=== PATIENT | female | born 2000 | race Caucasian/White ===

== ENCOUNTER 2020-12-31 18:48 | Emergency (ER) | payer OTHER ==
[~2020-12-31] VITALS: Ht 160 cm; Wt 72.2 kg
[2020-12-31 19:00] VITALS: BP 127/58
--- NOTE | 2020-12-31 19:37 | PHYS DOC ---
General Adult EDM: Chief Complaint: HEAD INJURY/TRAUMA HPI: HPI: Patient is a 20-year-old female who presents with head injury. Patient states that a 2 x 4 was leaning up against the wall when it slipped and fell and hit her in the head. Patient has a hematoma to the right side of her forehead. Denies loss of consciousness, denies neck pain. Patient reports pain 2/10. GCS 15. Alert and oriented x4. Denies taking anything for pain prior to arrival. (SID LUONG APRN) Review of Systems: Review of Systems: Constitutional: Denies fever or chills Eyes: Denies change in visual acuity HENT: Denies nasal congestion or sore throat Respiratory: Denies cough or shortness of breath Cardiovascular: Denies chest pain or edema GI: Denies abdominal pain, nausea, vomiting right side bloody stools or diarrhea : Denies dysuria Musculoskeletal: Denies back pain or joint pain Integument: Hematoma, right side of forehead Neurologic: Reports headache, denies focal weakness or sensory changes Endocrine: Denies polyuria or polydipsia Lymphatic: Denies swollen glands Psychiatric: Denies depression or anxiety (SID LUONG APRN) Allergies: Allergies: Allergies Coded Allergies Type Severity Reaction Last Updated Verified No Known Drug Allergies 12/31/20 No (SID LUONG APRN) Physical Exam: PE: Constitutional: Well developed, well nourished, no acute distress, non-toxic ap pearance. [] HENT: Normocephalic, atraumatic, bilateral external ears normal, oropharynx moist, no oral exudates, nose normal. [] Eyes: PERRLA, EOMI, conjunctiva normal, no discharge. [] Neck: Normal range of motion, no tenderness, supple, no stridor. [] Cardiovascular:Heart rate regular rhythm, no murmur [] Lungs & Thorax: Bilateral breath sounds clear to auscultation [] Abdomen: Bowel sounds normal, soft, no tenderness, no masses, no pulsatile masses. [] Skin: Warm, dry, no erythema, no rash. [] Back: No tenderness, no CVA tenderness. [] Extremities: No tenderness, no cyanosis, no clubbing, ROM intact, no edema. [] Neurologic: Alert and oriented X 3, normal motor function, normal sensory function, no focal deficits noted. [] Psychologic: Affect normal, judgement normal, mood normal. [] (SID LUONG APRN) EKG: EKG: [] (SID LUONG APRN) Radiology/Procedures: Radiology/Procedures: [] (SID LUONG APRN) Radiology/Procedures: CT head without contrast: Reason for examination: Head trauma with headache and neck pain. Helical images were obtained through the brain. No contrast was administered. Ventricular systems are symmetric and not dilated. No midline shift is seen. There is no evidence of intracranial hemorrhage, infarct, mass or edema. No abnormalities of seen at the orbits. The visualized portions of the paranasal sinuses and mastoid air cells are clear. No acute skull abnormality is seen. There does appear to be a right frontal scalp hematoma. IMPRESSION: No acute intracranial abnormality evident. Small right frontal scalp hematoma. CT cervical spine without contrast: Helical images were obtained through the cervical spine from skull base through the thoracic apices with no contrast administered. Reconstruction was performed in sagittal and coronal planes. The C1 ring is intact. The odontoid process is intact and normally centered between the lateral masses of C1. The vertebral bodies of the cervical spine are normally aligned anteriorly and posteriorly with no fracture or subluxation seen. The posterior elements are intact. The intervertebral discs are maintained. Prevertebral soft tissues are normal. There is no spinal stenosis. Paraspinous muscles show no gross abnormalities. IMPRESSION: No acute abnormality evident in the cervical spine. (VIRGINIA GOLDSTEIN MD) Heart Score: C/O Chest Pain: No Risk Factors: Risk Factors: DM, Current or recent (<one month) smoker, HTN, HLP, family history of CAD, obesity. Risk Scores: Score 0 - 3: 2.5% MACE over next 6 weeks - Discharge Home Score 4 - 6: 20.3% MACE over next 6 weeks - Admit for Clinical Observation Score 7 - 10: 72.7% MACE over next 6 weeks - Early Invasive Strategies (SID LUONG APRN) C/O Chest Pain: N/A (VIRGINIA GOLDSTEIN MD) Course & Med Decision Making: Course & Med Decision Making Pertinent Labs and Imaging studies reviewed. (See chart for details) [] CT head and neck negative for any acute abnormalities. Patient given Tylenol in the emergency room. Patient is requesting a work note. Patient given instructions on warning signs and when to return to the emergency room. Patient can take ibuprofen at home for headache. Patient has a GCS of 15. Alert and oriented x4. Hemodynamically stable and able to ambulate on her own out of the emergency room. Patient and dad both okay with discharge plan. (SID LUONG APRN) Course & Med Decision Making Accepted patient care at shift change, pending results of CT head, which came back normal. (VIRGINIA GOLDSTEIN MD) Laurynon Disclaimer: Abigail Disclaimer: This electronic medical record was generated, in whole or in part, using a voice recognition dictation system. (SID LUONG APRN) Departure Departure: Impression: Primary Impression: Head trauma Qualified Codes: S09.90XA - Unspecified injury of head, initial encounter Disposition: 01 DC HOME SELF CARE/HOMELESS Condition: STABLE Referrals: JB MILTON (PCP) Patient Instructions: Concussion and Brain Injury, [id number] Additional Instructions: EMERGENCY DEPARTMENT GENERAL DISCHARGE INSTRUCTIONS Thank you for coming to [facility] (ED) today and trusting us with you care. We trust that you had a positivie experience in our Emergency Department. If you wish to speak to the department management, you may call the director at . YOUR FOLLOW UP INSTRUCTIONS ARE FOLLOWS: 1. Do you have a private Doctor? If you do not have a private doctor, please ask for a resource list of physicians or clinics that may be able to assist you with follow up care. 2. The Emergency Physician has interpreted your x-rays. The X-Ray specialist will also review them. If there is a change in the findings, you will be notified in 48 hours when at all possible. 3. A lab test or culture has been done, your results will be reviewed and you will be notified if you need a change in treatment. ADDITIONAL INSTRUCTIONS AND INFORMATION: 1. Your care today has been supervised by a physician who is specially trained in emergency care. Many problems require more than one evaluation for a complete diagnosis and treatment. We recommend that you schedule your follow up appointment as recommended to ensure complete treatment of you illness or injury. If you are unable to obtain follow up care and continue to have a problem, or if your condition worsens, we recommend that you return to the ED. 2. We are not able to safely determine your condition over the phone nor are we able to give sound medical advice over the phone. For these safety reasons, if you call for medical advice we will ask you to come to the ED for further evaluation. 3. If you have any questions regarding these discharge instructions please call the ED at [phone]. SAFETY INFORMATION: In the interest of safety, wellness, and injury prevention; we encourage you to wear your sealbelt, if you smoke; quite smoking, and we encourage family to use a protective helmet for bicycling and other sporting events that present an increased risk for head injury. IF YOUR SYMPTOMS WORSEN OR NEW SYMPTOMS DEVELOP, OR YOU HAVE CONCERNS ABOUT YOUR CONDITION; OR IF YOUR CONDITION WORSENS WHILE YOU ARE WAITING FOR YOUR FOLLOW UP APPOINTMENT; EITHER CONTACT YOUR PRIMARY CARE DOCTOR, THE PHYSICIAN WHOSE NAME AND NUMBER YOU WERE GIVEN, OR RETURN TO THE ED IMMEDIATELY. SID LUONG APRN Dec 31, 2020 19:37 VIRGINIA GOLDSTEIN MD Dec 31, 2020 20:17
[2020-12-31] MEDS: ACETAMINOPHEN 325 MG TABLET PO ONE (19:54)
--- NOTE | 2020-12-31 20:11 | RAD ---
CT head without contrast: Reason for examination: Head trauma with headache and neck pain. Helical images were obtained through the brain. No contrast was administered. Ventricular systems are symmetric and not dilated. No midline shift is seen. There is no evidence of intracranial hemorrhage, infarct, mass or edema. No abnormalities of seen at the orbits. The visualiz ed portions of the paranasal sinuses and mastoid air cells are clear. No acute skull abnormality is s een. There does appear to be a right frontal scalp hematoma. IMPRESSION: No acute intracranial abnormality evident. Small right frontal scalp hematoma. CT cervical spine without contrast: Helical images were obtained through the cervical spine from skull base through the thoracic apices w ith no contrast administered. Reconstruction was performed in sagittal and coronal planes. The C1 ring is intact. The odontoid process is intact and normally centered between the lateral carolyn s of C1. The vertebral bodies of the cervical spine are normally aligned anteriorly and posteriorly w ith no fracture or subluxation seen. The posterior elements are intact. The intervertebral discs are maintained. Prevertebral soft tissues are normal. There is no spinal stenosis. Paraspinous muscles sh ow no gross abnormalities. IMPRESSION: No acute abnormality evident in the cervical spine. Exposure: One or more of the following individualized dose reduction techniques were utilized for thi s examination: 1. Automated exposure control 2. Adjustment of the mA and/or kV according to patient size 3. Use of iterative reconstruction technique. Electronically signed by: Dulce Flores MD (12/31/2020 8:08 PM) ERWIN
== END 2020-12-31 20:20 | disposition home or self-care (01) ==
LOC: ER 18:48
DX: S00.83XA Contusion of other part of head, initial encounter (principal); W01.0XXA Fall on same level from slipping, tripping and stumbling without subsequent striking against object, initial encounter; Y93.89 Activity, other specified; Y92.89 Other specified places as the place of occurrence of the external cause; Y99.8 Other external cause status
CPT/HCPCS: 70450; 72125; 99285-25